=== PATIENT | male | born 1965 | race Caucasian/White ===

== ENCOUNTER 2018-03-01 06:10 | Day surgery (SDC) | payer OTHER ==
[2018-03-01] MEDS ORDERED: PROPOFOL 40 ML (07:51)
[2018-03-01] MEDS ORDERED: LIDOCAINE 100 MG SYRINGE (07:51)
== END 2018-03-01 17:35 | disposition home or self-care (01) ==
LOC: GIL 06:10
DX: Z12.11 Encounter for screening for malignant neoplasm of colon (principal); K63.89 Other specified diseases of intestine; K64.8 Other hemorrhoids
CPT/HCPCS: 45378